=== PATIENT | female | born 1940 | race Caucasian/White ===

== ENCOUNTER 2020-12-20 10:43 | Emergency (ER) | payer MEDICARE ==
[~2020-12-20 10:43] MED LIST: BACL10TA PO; HYDR-3971 PO; LISI20TA24 PO; MELO-108 PO
[2020-12-20] MEDS ORDERED: HYDRALAZINE HCL 20 MG/ML VIAL ONE (11:05)
[2020-12-20 11:22] LABS: BASOPHILS % (AUTO) 0.6 % (0.0-5.0); CREATININE 0.9 mg/dL (0.5-1.5); EOSINOPHILS % (AUTO) 1.4 % (0.0-8.0); HEMATOCRIT 48.1 % (36-48); LYMPHOCYTES % (AUTO) 28.1 % (21.0-51.0); MEAN CORPUSCULAR HEMOGLOBIN 28.8 pg (27.0-33.0); MEAN CORPUSCULAR HGB CONC 31.2 g/dL (32.0-36.0); MEAN CORPUSCULAR VOLUME 92.3 fL (79-99); MONOCYTES % (AUTO) 6.9 % (3.0-13.0); NEUTROPHILS % (AUTO) 62.5 % (40.0-77.0); PLATELET COUNT (AUTO) 311 K/uL (130-400); POTASSIUM 3.5 mmol/L (3.5-5.1); RED BLOOD CELL COUNT(AUTO) 5.21 MIL/uL (4.00-5.50); RED CELL DISTRIBUTION WIDTH 14.6 % (11.0-15.5); WHITE BLOOD COUNT (AUTO) 8.4 K/uL (4.8-10.8)
[2020-12-20 11:27] LABS: ALBUMIN 4.2 g/dL (3.5-5.0); BILIRUBIN,TOTAL 0.3 mg/dL (0.2-1.0); TOTAL PROTEIN, SERUM 7.9 g/dL (6.0-8.3)
[2020-12-29] MEDS ORDERED: AMLO5TAB4 PO (11:29)
[2020-12-29] MEDS ORDERED: ASPI-1005 PO (11:29)
[2020-12-29] MEDS ORDERED: ACET-66 PO (11:31)
== END 2020-12-20 12:37 | disposition home or self-care (01) ==
LOC: EDH 10:43
DX: I16.0 Hypertensive urgency (principal); R42 Dizziness and giddiness; Z87.891 Personal history of nicotine dependence
CPT/HCPCS: 36415; 70450; 80053; 84484; 85025; 93005; 96374; 99285; J0360

== ENCOUNTER 2020-12-28 11:42 | Inpatient (IN) | payer MEDICARE ==
[~2020-12-28] VITALS: Ht 165.1 cm; Wt 77.9 kg
[2020-12-28 12:20] LABS: BASOPHILS % (AUTO) 0.7 % (0.0-5.0); HEMATOCRIT 46.1 % (36-48); LYMPHOCYTES % (AUTO) 22.7 % (21.0-51.0); MEAN CORPUSCULAR HEMOGLOBIN 28.7 pg (27.0-33.0); MEAN CORPUSCULAR HGB CONC 31.5 g/dL (32.0-36.0); MEAN CORPUSCULAR VOLUME 91.1 fL (79-99); MONOCYTES % (AUTO) 6.7 % (3.0-13.0); NEUTROPHILS % (AUTO) 68.6 % (40.0-77.0); PLATELET COUNT (AUTO) 324 K/uL (130-400); RED BLOOD CELL COUNT(AUTO) 5.06 MIL/uL (4.00-5.50); RED CELL DISTRIBUTION WIDTH 14.6 % (11.0-15.5); WHITE BLOOD COUNT (AUTO) 9.2 K/uL (4.8-10.8)
[2020-12-28 12:32] LABS: POTASSIUM 3.6 mmol/L (3.5-5.1)
[2020-12-28 12:37] LABS: ALBUMIN 4.1 g/dL (3.5-5.0); BILIRUBIN,TOTAL 0.3 mg/dL (0.2-1.0); TOTAL PROTEIN, SERUM 7.8 g/dL (6.0-8.3)
[2020-12-28] MEDS ORDERED: IPRATROPIUM/ALBUTEROL SULFATE 3 ML SOLUTION IH PRN (18:15)
[2020-12-28 18:43] LABS: APPEARANCE,URINE Clear (CLEAR); BILIRUBIN,URINE Negative (NEGATIVE); COLOR,URINE Yellow (YELLOW); GLUCOSE, URINE (UA) Negative (NEGATIVE); KETONES,URINE Negative (NEGATIVE); LEUKOCYTE ESTERASE ,URINE Negative (NEGATIVE); NITRATE,URINE Negative (NEGATIVE); OCCULT BLOOD,URINE Negative (NEGATIVE); PH,URINE 5.5 (5.0-8.0); PROTEIN,URINE Negative (NEGATIVE); UROBILINOGEN,URINE 0.2 mg/dL (0.2-1.0)
[2020-12-28 18:50] LABS: AMPHET/METH SCREEN,URINE NEGATIVE (NEGATIVE); BARBITURATE SCREEN, URINE NEGATIVE (NEGATIVE); BENZODIAZEPINES SCREEN,URINE NEGATIVE (NEGATIVE); CANNABINOID SCREEN,URINE NEGATIVE (NEGATIVE); COCAINE SCREEN,URINE NEGATIVE (NEGATIVE); OPIATE SCREEN,URINE NEGATIVE (NEGATIVE); PHENCYCLIDINE SCREEN,URINE NEGATIVE (NEGATIVE)
[2020-12-29 00:23] VITALS: BP 152/96
[2020-12-29] MEDS: KETOROLAC 15MG/ML VIAL (15MG/ML) IM PRN ×2 (03:16→10:33)
[2020-12-29 04:02] VITALS: BP 130/64
[2020-12-29 05:20] LABS: BASOPHILS % (AUTO) 0.6 % (0.0-5.0); EOSINOPHILS % (AUTO) 2.2 % (0.0-8.0); LYMPHOCYTES % (AUTO) 31.7 % (21.0-51.0); MEAN CORPUSCULAR HEMOGLOBIN 28.5 pg (27.0-33.0); MEAN CORPUSCULAR HGB CONC 30.8 g/dL (32.0-36.0); MEAN CORPUSCULAR VOLUME 92.6 fL (79-99); NEUTROPHILS % (AUTO) 57.4 % (40.0-77.0); PLATELET COUNT (AUTO) 261 K/uL (130-400); RED BLOOD CELL COUNT(AUTO) 4.32 MIL/uL (4.00-5.50); RED CELL DISTRIBUTION WIDTH 14.7 % (11.0-15.5); WHITE BLOOD COUNT (AUTO) 7.9 K/uL (4.8-10.8)
[2020-12-29 05:37] LABS: CREATININE 0.9 mg/dL (0.5-1.5); MAGNESIUM 2.2 mg/dL (1.80-2.40); POTASSIUM 3.4 mmol/L (3.5-5.1)
[2020-12-29 08:16] VITALS: BP 115/85
[2020-12-29] MEDS ORDERED: IOHEXOL-350 75 ML VIAL IV ONE ×2 (10:27→10:38)
[2020-12-29] MEDS: 0.9%NACL 1000ML 1,000 ML IV SCH (10:32)
[2020-12-29] MEDS ORDERED: IOHEXOL-350 50ML VIAL IV ONE (10:38)
[2020-12-29] MEDS ORDERED: KCL 20 MEQ ERTAB PO SCH (11:15)
[2020-12-29] MEDS ORDERED: AMLO5TAB4 PO ×2 (11:29)
[2020-12-29] MEDS ORDERED: ASPI-1005 PO ×2 (11:29)
[2020-12-29] MEDS ORDERED: ACET-66 PO ×2 (11:31)
[2020-12-29 11:46] VITALS: BP 148/87
[2020-12-29] MEDS ORDERED: ACETAMINOPHEN WITH CODEINE 1 TAB TAB PO PRN (15:15)
[2020-12-29] MEDS ORDERED: ACETAMINOPHEN 325 MG TAB PO PRN (15:15)
[2020-12-29] MEDS: AMLODIPINE 5 MG TAB PO SCH (16:02)
[2020-12-29] MEDS: ASPIRIN 81MG CHEW TAB PO SCH (16:02)
[2020-12-29] MEDS: ACETAMINOPHEN 325 MG TAB PO PRN (16:02)
[2020-12-29] MEDS: ENOXAPARIN SODIUM 40 MG/0.4 ML SYRINGE SQ SCH (16:03)
[2020-12-29 16:31] VITALS: BP 163/86
[2020-12-29 20:03] VITALS: BP 152/80
[2020-12-30] VITALS (7 sets, daily range): BP systolic 129–158; BP diastolic 69–88
[2020-12-30 04:14] LABS: BASOPHILS % (AUTO) 0.7 % (0.0-5.0); EOSINOPHILS % (AUTO) 3.1 % (0.0-8.0); HEMATOCRIT 41.2 % (36-48); LYMPHOCYTES % (AUTO) 25.2 % (21.0-51.0); MEAN CORPUSCULAR HEMOGLOBIN 28.4 pg (27.0-33.0); MEAN CORPUSCULAR HGB CONC 30.8 g/dL (32.0-36.0); MEAN CORPUSCULAR VOLUME 92.2 fL (79-99); MONOCYTES % (AUTO) 6.9 % (3.0-13.0); NEUTROPHILS % (AUTO) 63.8 % (40.0-77.0); PLATELET COUNT (AUTO) 268 K/uL (130-400); RED BLOOD CELL COUNT(AUTO) 4.47 MIL/uL (4.00-5.50); RED CELL DISTRIBUTION WIDTH 14.6 % (11.0-15.5); WHITE BLOOD COUNT (AUTO) 7.1 K/uL (4.8-10.8)
[2020-12-30 04:39] LABS: CREATININE 0.7 mg/dL (0.5-1.5); POTASSIUM 3.7 mmol/L (3.5-5.1)
[2020-12-30] MEDS: ASPIRIN 81MG CHEW TAB PO SCH (09:00)
[2020-12-30] MEDS: ENOXAPARIN SODIUM 40 MG/0.4 ML SYRINGE SQ SCH (09:00)
[2020-12-30 09:56] LABS: INR 1.48 (0.85-1.15); PROTHROMBIN TIME 15.6 SEC (9.6-11.6)
[2020-12-30 09:57] LABS: PARTIAL THROMBOPLASTIN TIME 31.4 SEC (26.3-35.5)
[2020-12-30] MEDS: 0.9%NACL 1000ML 1,000 ML IV SCH ×3 (10:55→23:30)
[2020-12-30] MEDS: FAMOTIDINE 20MG TAB PO SCH (10:56)
[2020-12-30] MEDS: AMLODIPINE 5 MG TAB PO SCH (10:56)
[2020-12-31] VITALS (11 sets, daily range): BP systolic 107–179; BP diastolic 69–106
[2020-12-31] MEDS: ENOXAPARIN SODIUM 40 MG/0.4 ML SYRINGE SQ SCH (07:35)
[2020-12-31] MEDS: ASPIRIN 81MG CHEW TAB PO SCH (08:28)
[2020-12-31] MEDS: FAMOTIDINE 20MG TAB PO SCH (08:41)
[2020-12-31] MEDS: ACETAMINOPHEN 325 MG TAB PO PRN (08:41)
[2020-12-31] MEDS: AMLODIPINE 5 MG TAB PO SCH (08:41)
[2020-12-31] MEDS ORDERED: MIDAZOLAM HCL 1 MG/ML 2ML VIAL ONE (09:47)
[2020-12-31] MEDS ORDERED: FENTANYL CITRATE PF 50 MCG/1 ML 2ML VIAL ONE (09:47)
[2021-02-08] MEDS ORDERED: DOCU-270 PO (10:30)
[2021-02-08] MEDS ORDERED: BENZ-70 PO (10:30)
[2021-02-08] MEDS ORDERED: FURO20TA6 PO (10:30)
[2021-02-08] MEDS ORDERED: TRAM1TAB PO ×2 (10:56→18:10)
[2021-03-28] MEDS ORDERED: ACET500P24 PO (16:32)
[2021-03-28] MEDS ORDERED: TIOT18CA3 IH (16:32)
[2021-03-28] MEDS ORDERED: SYMB8060 IH (16:32)
[2021-04-04] MEDS ORDERED: TIOT18CA3 IH (20:09)
[2021-04-04] MEDS ORDERED: ACET-66 PO (20:09)
[2021-04-04] MEDS ORDERED: AMLO-258 PO (20:09)
[2021-04-08] MEDS ORDERED: AMOX-426 PO (17:01)
[2021-09-11] MEDS ORDERED: METR-172 PO (18:15)
[2021-09-11] MEDS ORDERED: LEVO500T90 PO (18:15)
== END 2020-12-31 15:00 | disposition home or self-care (01) | DRG 180 ==
LOC: EDH 11:42 → EDHIP 18:08 → 4BH 20:51 → EDHIP 21:16 → 4BH 23:46
PROVIDERS: ADMIT Internal Medicine; ATTEND Internal Medicine
PROC: 0BBC3ZX Excision of Right Upper Lung Lobe, Percutaneous Approach, Diagnostic (ICD-10-PCS; principal; 2020-12-31)
DX: C34.90 Malignant neoplasm of unspecified part of unspecified bronchus or lung (principal); I21.9 Acute myocardial infarction, unspecified; I10 Essential (primary) hypertension; J43.2 Centrilobular emphysema; I49.1 Atrial premature depolarization; K80.20 Calculus of gallbladder without cholecystitis without obstruction; Z87.891 Personal history of nicotine dependence; Z82.49 Family history of ischemic heart disease and other diseases of the circulatory system
CPT/HCPCS: 32405; 36415; 70470; 71045; 71250; 71275; 77012; 80048; 80053; 80305; 81003; 82948; 83735; 83880; 84145; 84484; 85025; 85610; 85730; 88305; 88333; 88341; 88342; 93005; 93306; 93356; 94664; 99152; 99153; G0378; J1650; J1885; J2250; J3010; J7030; Q9967

== ENCOUNTER 2021-03-29 07:48 | Day surgery (SDC) | payer MEDICARE ==
[2021-03-29] VITALS (7 sets, daily range): BP systolic 87–112; BP diastolic 44–67
[~2021-03-29 07:48] MED LIST changes: +0.9%NACL 1000ML 1,000 ML IV ONE; +ACET-66 PO; +ACET500P24 PO; +AMLO5TAB4 PO; -BACL10TA PO; +BENZ-70 PO; +DOCU-275 PO; +FURO20TA6 PO; -HYDR-3971 PO; -LISI20TA24 PO; -MELO-108 PO; +SYMB8060 IH; +TIOT18CA3 IH; +TRAM1TAB PO
[2021-03-29] MEDS ORDERED: PROPOFOL 10 MG/ML 20ML VIAL IV ONE (10:34)
[2021-03-29] MEDS ORDERED: PHENYLEPHRINE HCL 10 MG/ML 1ML VIAL IV ONE (10:39)
[2021-03-29] MEDS ORDERED: 0.9%NACL 10ML VIAL ONE (10:39)
[2021-04-04] MEDS ORDERED: AMLO-258 PO (20:09)
[2021-04-04] MEDS ORDERED: ACET-66 PO (20:09)
[2021-04-04] MEDS ORDERED: TIOT18CA3 IH (20:09)
== END 2021-03-29 12:00 | disposition home or self-care (01) ==
LOC: ENDO 07:48 → DAH 07:48 → ENDO 12:00
PROVIDERS: ATTEND Internal Medicine Gastroenterology
DX: R19.4 Change in bowel habit (principal); Z20.822 Contact with and (suspected) exposure to COVID-19; K21.9 Gastro-esophageal reflux disease without esophagitis; K57.30 Diverticulosis of large intestine without perforation or abscess without bleeding; K62.1 Rectal polyp; K31.89 Other diseases of stomach and duodenum; K31.7 Polyp of stomach and duodenum; K29.70 Gastritis, unspecified, without bleeding; I10 Essential (primary) hypertension; J44.9 Chronic obstructive pulmonary disease, unspecified; Z85.3 Personal history of malignant neoplasm of breast; Z85.118 Personal history of other malignant neoplasm of bronchus and lung; Z90.710 Acquired absence of both cervix and uterus; Z98.890 Other specified postprocedural states; Z72.89 Other problems related to lifestyle; Z99.81 Dependence on supplemental oxygen; Z79.899 Other long term (current) drug therapy
CPT/HCPCS: 43239; 45381; 45385; 87635; A4215; A4221; A4222; A4223; A4606; A4620; A4657; A4663; C9803; J2370; J2704; J7030

== ENCOUNTER → 2021-08-29 | Outpatient (CLI) | payer MEDICARE ==
[~2021-08-29] MED LIST changes: -0.9%NACL 1000ML 1,000 ML IV ONE; -ACET500P24 PO; +AMLO-258 PO; +AMOX-426 PO; -BENZ-70 PO; -DOCU-275 PO; -FURO20TA6 PO; -TRAM1TAB PO
== END | disposition home or self-care (01) ==
LOC: RAH 13:29
PROVIDERS: ATTEND Internal Medicine Critical Care Medicine
DX: C80.1 Malignant (primary) neoplasm, unspecified (principal); I25.10 Atherosclerotic heart disease of native coronary artery without angina pectoris; J44.9 Chronic obstructive pulmonary disease, unspecified; J90 Pleural effusion, not elsewhere classified; K80.20 Calculus of gallbladder without cholecystitis without obstruction; M47.815 Spondylosis without myelopathy or radiculopathy, thoracolumbar region; R91.1 Solitary pulmonary nodule
CPT/HCPCS: 71250

== ENCOUNTER → 2022-12-21 | Outpatient (CLI) | payer MEDICARE ==
[~2022-12-21] MED LIST changes: -AMLO-258 PO; -AMOX-426 PO
== END | disposition home or self-care (01) ==
LOC: RAH 13:18
PROVIDERS: ATTEND Internal Medicine Critical Care Medicine
DX: J43.2 Centrilobular emphysema (principal)
CPT/HCPCS: 71250

== ENCOUNTER → 2023-08-16 | Outpatient (CLI) | payer MEDICARE ==
[~2023-08-16] MED LIST changes: +IOHEXOL 350 MG/ML 100ML INFUS..BTL IV ONE
== END | disposition home or self-care (01) ==
LOC: RAH 10:51
PROVIDERS: ATTEND Internal Medicine Medical Oncology
DX: C34.11 Malignant neoplasm of upper lobe, right bronchus or lung (principal); R91.1 Solitary pulmonary nodule; J44.9 Chronic obstructive pulmonary disease, unspecified; I25.10 Atherosclerotic heart disease of native coronary artery without angina pectoris; K57.90 Diverticulosis of intestine, part unspecified, without perforation or abscess without bleeding
CPT/HCPCS: 71260; 74177; Q9967

== ENCOUNTER → 2023-12-20 | Outpatient (CLI) | payer MEDICARE | END | disposition home or self-care (01) | LOC: RAH 08:34 | PROVIDERS: ATTEND Internal Medicine Medical Oncology | DX: C34.11 Malignant neoplasm of upper lobe, right bronchus or lung (principal); I70.0 Atherosclerosis of aorta; K57.30 Diverticulosis of large intestine without perforation or abscess without bleeding; R91.1 Solitary pulmonary nodule; Z90.49 Acquired absence of other specified parts of digestive tract; Z90.2 Acquired absence of lung [part of] | CPT/HCPCS: 71260; 74177; Q9967 ==

== ENCOUNTER → 2024-03-20 | Outpatient (CLI) | payer MEDICARE ==
[~2024-03-20] MED LIST changes: +GADOTERATE MEGLUMINE 10 MMOL/20 ML VIAL IV ONE; -IOHEXOL 350 MG/ML 100ML INFUS..BTL IV ONE
== END | disposition home or self-care (01) ==
LOC: RAH 13:22
PROVIDERS: ATTEND Internal Medicine Medical Oncology
DX: C34.11 Malignant neoplasm of upper lobe, right bronchus or lung (principal); C90.30 Solitary plasmacytoma not having achieved remission; N32.89 Other specified disorders of bladder; K57.90 Diverticulosis of intestine, part unspecified, without perforation or abscess without bleeding
CPT/HCPCS: 73723; A9575

== ENCOUNTER 2024-07-03 11:33 | Emergency (ER) | payer MEDICARE ==
[~2024-07-03] VITALS: Ht 160 cm; Wt 68.0 kg
[~2024-07-03 11:33] MED LIST changes: -GADOTERATE MEGLUMINE 10 MMOL/20 ML VIAL IV ONE
[2024-07-03 12:48] LABS: POTASSIUM 4.4 mmol/L (3.5-5.1)
[2024-07-03 12:50] LABS: BASOPHILS # (AUTO) 0.03 K/uL (0.00-0.20); BASOPHILS % (AUTO) 0.7 % (0.0-5.0); EOSINOPHILS # (AUTO) 0.07 K/uL (0.00-0.70); EOSINOPHILS % (AUTO) 1.6 % (0.0-8.0); HEMATOCRIT 37.9 % (36-48); IMMATURE GRANULOCYTE ABSOLUTE 0.01 K/uL (0-1); LYMPHOCYTES # (AUTO) 0.8 K/uL (1.0-4.8); LYMPHOCYTES % (AUTO) 17.2 % (21.0-51.0); MEAN CORPUSCULAR HEMOGLOBIN 27.5 pg (27.0-33.0); MEAN CORPUSCULAR HGB CONC 31.4 g/dL (32.0-36.0); MEAN CORPUSCULAR VOLUME 87.5 fL (79-99); MONOCYTES # (AUTO) 0.4 K/uL (0.1-1.0); NEUTROPHILS # (AUTO) 3.1 K/uL (1.8-7.7); NEUTROPHILS % (AUTO) 70.3 % (40.0-77.0); PLATELET COUNT (AUTO) 259 K/uL (130-400); RED BLOOD CELL COUNT(AUTO) 4.33 MIL/uL (4.00-5.50); RED CELL DISTRIBUTION WIDTH 16.5 % (11.0-15.5); WHITE BLOOD COUNT (AUTO) 4.4 K/uL (4.8-10.8)
[2024-07-03] MEDS: ketOROlac 15MG/ML VIAL (15MG/ML) IV ONE (13:04)
[2024-07-03] MEDS: ondanSETRON 4MG INJ IVP ONE (13:04)
[2024-07-03] MEDS: morPHINE 4 MG SYG IVP ONE (13:05)
[2024-07-03 13:28] LABS: APPEARANCE,URINE CLEAR (CLEAR); BILIRUBIN,URINE NEGATIVE (NEGATIVE); COLOR,URINE LIGHT-YELLOW (YELLOW); GLUCOSE, URINE (UA) NEGATIVE (NEGATIVE); KETONES,URINE NEGATIVE (NEGATIVE); LEUKOCYTE ESTERASE ,URINE NEGATIVE Leu/uL (NEGATIVE); NITRATE,URINE NEGATIVE (NEGATIVE); OCCULT BLOOD,URINE NEGATIVE (NEGATIVE); PROTEIN,URINE NEGATIVE (NEGATIVE); UROBILINOGEN,URINE 0.2 mg/dL (0.2-1.0)
[2024-07-03 13:30] LABS: ADD UA MICROSCOPIC NO
[2024-07-03 15:48] VITALS: BP 142/70; PULSE 73; RESP 18; TEMP 98.2; O2SAT 99
[2024-07-03] MEDS ORDERED: LIDO1ADH82 TP (15:51)
[2024-07-03] MEDS ORDERED: LIDOP TP (15:53)
== END 2024-07-03 16:27 | disposition home or self-care (01) ==
LOC: EDH 11:33
DX: S39.012A Strain of muscle, fascia and tendon of lower back, initial encounter (principal); I25.10 Atherosclerotic heart disease of native coronary artery without angina pectoris; E78.00 Pure hypercholesterolemia, unspecified; I10 Essential (primary) hypertension; Z79.899 Other long term (current) drug therapy; X58.XXXA Exposure to other specified factors, initial encounter; Y93.89 Activity, other specified; Y92.89 Other specified places as the place of occurrence of the external cause; Y99.8 Other external cause status
CPT/HCPCS: 99285; 74176; 96374; 96375; 84484; 80048; 85025; 81003; 36415; 93005; J2405; J2270; J1885

== ENCOUNTER → 2025-02-25 | Outpatient (CLI) | payer MEDICARE ==
[~2025-02-25] MED LIST changes: +IOHEXOL 350 MG/ML 100ML INFUS..BTL IV ONE; +LIDO1ADH82 TP; +LIDOP TP
--- NOTE | 2025-02-25 12:14 | HMCIMG ---
CT CHEST/ABD/PELV W/CONRAST HISTORY: Malignant neoplasm of the upper lobe COMPARISON: 12/20/2023 TECHNIQUE: Multiple sequential axial images of the chest were obtained from the thoracic inlet through upper abdomen. Patient was given 100 cc of Omnipaque through intravenous route. 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 There is 4 mm pleural base pulmonary nodule in the right midlung. Right lung volume loss is seen. There is no other evidence of pulmonary nodule or parenchymal disease. No pleural effusion or pericardial effusion is seen. There is no evidence of pneumothorax. There are normal size mediastinal and hilar lymph nodes. The heart is not enlarged. Degenerative changes of the thoracolumbar spine are present. There is no evidence of adrenal nodule. IMPRESSION: 1. No evidence of pulmonary nodule or effusion is seen. CT CHEST/ABD/PELV W/CONRAST HISTORY: Malignant neoplasm of upper lobe. COMPARISON: None TECHNIQUE: Multiple sequential axial images of the abdomen and pelvis were obtained from the dome of the diaphragm through symphysis pubis. Patient was given contrast along with the CT chest study through intravenous route. Oral contrast was given. FINDINGS: Postcholecystectomy changes are seen. There is diverticulosis. There is right upper pole renal cyst measuring 17 mm. There is scoliosis. The liver, spleen, adrenal glands and pancreas are unremarkable. There is no evidence of hydronephrosis bilaterally. No evidence of renal stone is seen. Fecal material is seen in the colon. There are normal size retroperitoneal and mesenteric lymph nodes. No ascites is seen. Atherosclerotic changes are present. Pelvic sidewalls are symmetric bilaterally. Bladder is poorly distended. IMPRESSION: 1. Postcholecystectomy changes are seen. There is diverticulosis. There is right upper pole renal cyst measuring 17 mm. There is scoliosis. CT was performed with one or more following dose reduction techniques: automated exposure control, adjustment of the mA and kv according to patient's size, or use of a iterative reconstruction technique.
== END | disposition home or self-care (01) ==
LOC: RAH 08:20
PROVIDERS: ATTEND Internal Medicine Medical Oncology
DX: C34.11 Malignant neoplasm of upper lobe, right bronchus or lung (principal); J44.9 Chronic obstructive pulmonary disease, unspecified; N28.1 Cyst of kidney, acquired; K57.90 Diverticulosis of intestine, part unspecified, without perforation or abscess without bleeding; M47.815 Spondylosis without myelopathy or radiculopathy, thoracolumbar region; M41.9 Scoliosis, unspecified; R19.5 Other fecal abnormalities; I70.90 Unspecified atherosclerosis
CPT/HCPCS: 71260; 74177; Q9967

== ENCOUNTER → 2025-07-31 | Outpatient (CLI) | payer MEDICARE ==
--- NOTE | 2025-08-01 09:27 | HMCIMG ---
EXAMINATION: CT EXAMINATION OF THE CHEST WITH AND WITHOUT CONTRAST CLINICAL HISTORY: Malignant neoplasm of upper lobe, right bronchus or lung. TECHNIQUE: Thin collimated axial CT images of the chest with sagittal and coronal reformations were obtained after contrast administration of IV contrast. The total dose length product has been recorded in the electronic medical record. COMPARISON: None. FINDINGS: Central airways are patent. Right upper lobectomy status. There are fibrocalcific areas in the left upper lobe. Centrilobular emphysematous changes in both lungs. Fibroatelectatic bands in the right lower lobe. 8 mm subpleural nodule in the right lower lobe (series 2, image 40). There is no pleural or pericardial effusion. The heart size is within normal limits. There are atheromatous wall calcification of the aorta. The ascending aorta measures 3.3 x 3.2 cm. There is no axillary or supraclavicular lymphadenopathy. Hilar mandy stations are unremarkable. There is no focal thyroid abnormality. There is multilevel moderate degenerative spondylosis of the spine. There is no acute osseous abnormality. IMPRESSION: 8 mm subpleural nodule in the right lower lobe. If indicated, PET/CT can be performed. Fibrocalcific areas in the left upper lobe. Centrilobular emphysematous changes in both lungs. EXAMINATION: CT Abdomen and Pelvis without and with contrast. CLINICAL HISTORY: Malignant neoplasm of upper lobe, right bronchus or lung. TECHNIQUE: Multiple contiguous axial CT images were obtained through the abdomen and pelvis following the administration of intravenous contrast. Coronal and sagittal reconstructions were also obtained. COMPARISON: None. FINDINGS: The liver is normal in caliber with uniform decreased density. The gallbladder is surgically absent. Dilated extrahepatic bile duct. There is a right renal upper pole cortical cyst measuring 1.8 x 1.8 x 1.8 cm in craniocaudal, AP, and transverse dimensions respectively. The spleen, pancreas, adrenal glands, and left kidney appear within normal limits. There are colonic diverticula. Rest of the bowel loops are normal in caliber without evidence of obstruction, ileus, or obvious bowel wall thickening. Urinary bladder is well distended with normal wall thickening. Uterus is surgically absent. Both ovaries are not visualized. There is no ascites or lymphadenopathy. The opacified abdominal and pelvic vessels are patent. There are atheromatous wall calcification of the aorta and iliac arteries. No acute or suspicious osseous abnormality. There are multilevel moderate degenerative spondylotic changes of the spine with levoscoliosis. IMPRESSION: No evidence of metastatic disease in the abdomen or pelvis. Hepatic steatosis. Status post cholecystectomy. Dilated extrahepatic bile duct -likely related to the prior cholecystectomy. Right renal upper pole cortical cyst. No hydronephrosis. No bowel obstruction or inflammation. Colonic diverticula. /Yael
== END | disposition home or self-care (01) ==
LOC: RAH 10:07
PROVIDERS: ATTEND Internal Medicine Medical Oncology
DX: C34.11 Malignant neoplasm of upper lobe, right bronchus or lung (principal); K76.0 Fatty (change of) liver, not elsewhere classified; N28.1 Cyst of kidney, acquired; K57.30 Diverticulosis of large intestine without perforation or abscess without bleeding; J43.2 Centrilobular emphysema; I70.0 Atherosclerosis of aorta; M47.817 Spondylosis without myelopathy or radiculopathy, lumbosacral region; M41.86 Other forms of scoliosis, lumbar region; J98.4 Other disorders of lung; M47.814 Spondylosis without myelopathy or radiculopathy, thoracic region; Z98.890 Other specified postprocedural states; Z90.49 Acquired absence of other specified parts of digestive tract; Z90.710 Acquired absence of both cervix and uterus
CPT/HCPCS: 71260; 74177; Q9967